=== PATIENT | female | born 1945 ===

== ENCOUNTER 2021-12-27 15:30 | Inpatient (IN) | payer MEDICARE, MEDICAID ==
[~2021-12-27] VITALS: Ht 160 cm; Wt 99.7 kg
[2021-12-27 16:11] VITALS: BP 116/54; PULSE 93; TEMP 98.5
[2021-12-27 16:45] LABS: BASO % 0.1 % (0.0-2.0); EOS % 0.2 % (0.0-4.0); GRAN % 85.2 % (42.2-75.2); HEMOGLOBIN 10.1 g/dl (12.5-16.0); LYMPH # 0.6 K/mm3 (1.2-3.4); LYMPH % 5.6 % (20.0-51.0); MEAN CELL VOLUME 85 fl (80.0-100.0); MEAN CORPUSCULAR HEMOGLOBIN 29 pg (27-31); MEAN CORPUSCULAR HGB CONC 34 g/dl (33.0-37.0); MEAN PLATELET VOLUME 9.4 fl (7.4-10.4); MONO # 0.8 K/mm3 (0.1-0.6); MONO % 7.6 % (1.7-9.3); PLATELET COUNT 221 K/mm3 (130-400); RED BLOOD COUNT 3.49 M/mm3 (4.10-5.30); REDCELL DISTRIBUTION WIDTH-CV 13.6 % (11.5-14.5)
[2021-12-27 16:50] LABS: HEMATOCRIT 29.8 % (37.0-47.0)
[2021-12-27 17:09] LABS: ALBUMIN 2.5 gm/dL (3.4-4.8); BILIRUBIN,TOTAL 0.8 mg/dL (0.2-1.2); CALCIUM 7.2 mg/dL (8.4-10.2); CREATININE, serum 1.25 mg/dL (0.57-1.11); TOTAL PROTEIN 5.6 gm/dL (6.2-8.1)
[2021-12-27 17:15] LABS: POTASSIUM 2.2 mmol/L (3.5-4.5)
[2021-12-27 20:20] VITALS: BP 132/67; PULSE 87; TEMP 97.9
[2021-12-27 21:00] LABS: MAGNESIUM 1.2 mg/dL (1.6-2.6); PHOSPHOROUS 3.3 mg/dL (2.3-4.7)
[2021-12-27 21:28] LABS: CALCIUM 7.1 mg/dL (8.4-10.2); CREATININE, serum 1.24 mg/dL (0.57-1.11)
[2021-12-27 21:32] LABS: POTASSIUM 2.6 mmol/L (3.5-4.5)
[2021-12-28] VITALS (7 sets, daily range): BP systolic 111–129; BP diastolic 41–51; PULSE 79–98; TEMP 97.6–98.7
[2021-12-28 04:29] LABS: BASO % 0.2 % (0.0-2.0); EOS % 0.1 % (0.0-4.0); GRAN # 9.9 K/mm3 (1.4-6.5); GRAN % 85.6 % (42.2-75.2); LYMPH # 0.9 K/mm3 (1.2-3.4); LYMPH % 7.4 % (20.0-51.0); MEAN CELL VOLUME 87 fl (80.0-100.0); MEAN CORPUSCULAR HGB CONC 34 g/dl (33.0-37.0); MEAN PLATELET VOLUME 9.3 fl (7.4-10.4); MONO # 0.7 K/mm3 (0.1-0.6); MONO % 6.2 % (1.7-9.3); PLATELET COUNT 211 K/mm3 (130-400); RED BLOOD COUNT 3.24 M/mm3 (4.10-5.30); REDCELL DISTRIBUTION WIDTH-CV 13.7 % (11.5-14.5)
[2021-12-28 04:37] LABS: HEMATOCRIT 28.2 % (37.0-47.0); HEMOGLOBIN 9.5 g/dl (12.5-16.0); MEAN CORPUSCULAR HEMOGLOBIN 29 pg (27-31)
[2021-12-28 04:59] LABS: CALCIUM 7.4 mg/dL (8.4-10.2); CREATININE, serum 1.14 mg/dL (0.57-1.11); MAGNESIUM 2.7 mg/dL (1.6-2.6)
[2021-12-28 05:06] LABS: POTASSIUM 2.9 mmol/L (3.5-4.5)
--- NOTE | 2021-12-28 10:34 | NUR ---
Initial visit; Patient thanked Online Banking Specialist for looking in on her. She is from [place] and very pleasant. Patient was receptive to prayer with Online Banking Specialist and having Online Banking Specialist keep her in her prayers. Online Banking Specialist will follow up.
--- NOTE | 2021-12-28 10:51 | NUR ---
PT RESTING IN BED. MORNING MEDICATIONS GIVEN. SHIFT ASSESSMENT COMPLETED. PT PARTIALLY ORIENTED TO SELF AND PLACE, NOT COMBATIVE AND FOLLOWS COMMANDS. SOFT RESTRAINTS REMOVED PER DR. MOODY ORDERS. PLAN TO D/C AGUILAR AND CENTRAL LINE PER DR. MOODY. PT SITTING UP EATING, NO SWALLOWING ISSUES NOTED. WILL CONTINUE TO MONITOR.
--- NOTE | 2021-12-28 14:49 | NUR ---
Director Sanitation Bureau met with patient and patient's daughter, Lisa (ph#[phone]) to discuss discharge planning. Patient lives alone in [place] and moved here from [place] in September. Patient sees Dr. Carina Aguilar at the [facility] and obtains medications from [facility]. Patient uses a rollator for ambulation and also has a transport chair, stool riser, and tub transfer bench at home. Patient reports she is normally independent with ADLS, however Lisa states patient needs assistance but will not admit it. SW inquired about Advance Directives and patient advised she has the forms at home, she just needs to complete them. SW reviewed OT recommendation for post acute rehab and patient declined. SW discussed Home Health services and patient was reluctant, however Lisa stated she needed HH and wanted list of agencies. SW provided Medicare.gov list of HH agencies that serve . Discharge Plan: Home with HH
[2021-12-28] MEDS ORDERED: PHARMASSURE ZIN50 MG PO (17:51)
[2021-12-28] MEDS ORDERED: VITAMIN D31000 I1 PO (17:52)
[2021-12-28] MEDS ORDERED: MAGNESIUM ELEM300 MG PO (17:52)
[2021-12-28] MEDS ORDERED: VITAMINC1000TA PO (17:52)
[2021-12-28] MEDS ORDERED: DESYREL 50MG50 MG PO (17:53)
[2021-12-28] MEDS ORDERED: TENORMIN100 MG PO (17:53)
[2021-12-28] MEDS ORDERED: PRAVACHOL 40MG40 MG PO (17:53)
[2021-12-28] MEDS ORDERED: PROTONIX 40MG T40 MG PO (17:54)
[2021-12-28] MEDS ORDERED: FERROUS SU325 MG/TAB PO (17:55)
[2021-12-28] MEDS ORDERED: GLUCOTROL10 MG PO (17:58)
[2021-12-28] MEDS ORDERED: LASIX 40MG TABL40 MG PO (17:58)
[2021-12-28] MEDS ORDERED: KEPPRA750 MG PO (17:58)
[2021-12-28] MEDS ORDERED: ALDACTONE 25MG25 M1 PO (17:59)
[2021-12-28] MEDS ORDERED: VICTOZA6 MG/ML SQ (17:59)
[2021-12-28] MEDS ORDERED: LEVEMIR100 U/ML SQ (17:59)
--- NOTE | 2021-12-28 19:57 | NUR ---
AGUILAR CATHETER REMOVED AT 1700, PT HAS GOOD URINE OUTPUT SINCE REMOVAL. LEFT FEMORAL CENTRAL LINE REMOVED AT 1920, PRESSURED HELD, FLAT TIME COMPLETED, DRESSING C/D/I. REPORT PASSED ALONG TO ANNETTE RAZA.
[2021-12-29 03:57] VITALS: BP 126/67; PULSE 92; TEMP 98.5
[2021-12-29 07:16] LABS: BASO % 0.2 % (0.0-2.0); CALCIUM 8.2 mg/dL (8.4-10.2); CREATININE, serum 0.92 mg/dL (0.57-1.11); EOS # 0.1 K/mm3 (0.0-0.7); EOS % 0.4 % (0.0-4.0); GRAN # 11.1 K/mm3 (1.4-6.5); GRAN % 88.7 % (42.2-75.2); LYMPH # 0.6 K/mm3 (1.2-3.4); LYMPH % 5.1 % (20.0-51.0); MEAN CELL VOLUME 89 fl (80.0-100.0); MEAN CORPUSCULAR HGB CONC 32 g/dl (33.0-37.0); MEAN PLATELET VOLUME 9.6 fl (7.4-10.4); MONO # 0.6 K/mm3 (0.1-0.6); MONO % 4.7 % (1.7-9.3); PLATELET COUNT 201 K/mm3 (130-400); POTASSIUM 3.9 mmol/L (3.5-4.5); RED BLOOD COUNT 3.32 M/mm3 (4.10-5.30); REDCELL DISTRIBUTION WIDTH-CV 13.5 % (11.5-14.5)
[2021-12-29 07:18] LABS: HEMATOCRIT 29.5 % (37.0-47.0); HEMOGLOBIN 9.5 g/dl (12.5-16.0); MEAN CORPUSCULAR HEMOGLOBIN 29 pg (27-31)
[2021-12-29 07:20] VITALS: BP 126/54; PULSE 88; TEMP 97.9
--- NOTE | 2021-12-29 10:09 | NUR ---
PT IN BED AND TALKATIVE. SHIFT ASSESMENT PERFORMED, VSS. REDNESS NOTED TO SACRAL AREA AND BUTTOCKS, AND SKIN TEAR NOTED IN SKIN FOLDS OF ABDOMEN EXTERNAL CATHETER IN PLACE AND OPERATIONAL. MORNING MEDICATIONS ADMINISTERED. CALL LIGHT WITHIN REACH.
--- NOTE | 2021-12-29 10:09 | NUR ---
Follow-up visit; Patient thanked Coning Machine Operator for looking in on her again today and asked that Coning Machine Operator pray again. Coning Machine Operator offered comfort and prayer and asked that patient also keep Coning Machine Operator in her prayers. Coning Machine Operator will continue to follow-up as patient clearly loves prayer.
[2021-12-29 11:27] VITALS: BP 132/59; PULSE 77; TEMP 98.8
[2021-12-29 16:14] VITALS: BP 121/51; PULSE 77; TEMP 98.8
--- NOTE | 2021-12-29 18:25 | NUR ---
PT RESTED IN BED MOST OF THE DAY, BUT WAS ABLE TO GET UP TO THE CHAIR FOR A FEW HOURS IN THE AFTERNOON. PT WAS A&O X4 ALL DAY, AND IN GOOD SPIRITS. PT CURRENTLY IN BED WATCHING TV, CALL LIGHT WITHIN REACH, BED IN LOWEST LOCKED POSITION.
[2021-12-29 20:04] VITALS: BP 114/49; PULSE 80; TEMP 99.2
[2021-12-30 00:15] VITALS: BP 112/52; PULSE 78; TEMP 98.8
[2021-12-30 04:11] VITALS: BP 130/53; PULSE 77; TEMP 98.6
[2021-12-30 06:32] LABS: BASO % 0.2 % (0.0-2.0); EOS # 0.1 K/mm3 (0.0-0.7); EOS % 1.1 % (0.0-4.0); GRAN # 9.8 K/mm3 (1.4-6.5); GRAN % 84.5 % (42.2-75.2); LYMPH % 8.2 % (20.0-51.0); MEAN CELL VOLUME 90 fl (80.0-100.0); MEAN CORPUSCULAR HGB CONC 32 g/dl (33.0-37.0); MEAN PLATELET VOLUME 9.3 fl (7.4-10.4); MONO # 0.6 K/mm3 (0.1-0.6); PLATELET COUNT 213 K/mm3 (130-400); RED BLOOD COUNT 3.31 M/mm3 (4.10-5.30); REDCELL DISTRIBUTION WIDTH-CV 13.8 % (11.5-14.5)
[2021-12-30 06:39] LABS: HEMATOCRIT 29.8 % (37.0-47.0); HEMOGLOBIN 9.5 g/dl (12.5-16.0); MEAN CORPUSCULAR HEMOGLOBIN 29 pg (27-31)
[2021-12-30 06:52] LABS: CALCIUM 8.5 mg/dL (8.4-10.2); CREATININE, serum 0.87 mg/dL (0.57-1.11); MAGNESIUM 1.8 mg/dL (1.6-2.6); POTASSIUM 3.5 mmol/L (3.5-4.5)
[2021-12-30 07:08] VITALS: BP 119/53; PULSE 75; TEMP 98.7
[2021-12-30] MEDS ORDERED: OMNICEF 300MG300 MG PO (09:47)
--- NOTE | 2021-12-30 10:25 | NUR ---
PT RESTING IN BED. MORNING MEDICATIONS. SHIFT ASSESSMENT COMPLETED. PT DENIES ANY PAIN, DOES STATE SHE FEELS DROWSY AND GOT LITTLE SLEEP LAST NIGHT. IVF INFUSING. CALL LIGHT IN REACH. WILL CONTINUE TO MONITOR.
[2021-12-30 11:47] VITALS: BP 134/55; PULSE 65; TEMP 98.5
--- NOTE | 2021-12-30 12:30 | NUR ---
Patient is ready for discharge today. Market Research Specialist met with patient to review Medicare.gov list of Home Health options. Patient selected [facility]. SW contacted [facility] with [facility] and faxed referral with discharge orders. SW contacted patient's daughter, Lisa to provide update and she is in agreement with discharge plan. Discharge Plan: Home with [facility]
--- NOTE | 2021-12-30 13:06 | NUR ---
IV D/C. TELE D/C. DISCHARGE INSTRUCTIONS GIVEN, DAUGHTER AT BEDSIDE, ALL QUESTIONS ANSWERED. PT ESCORTED DOWN TO VEHICLE WITH STAFF. WILL D/C FROM SYSTEM.
--- NOTE | 2021-12-31 15:29 | NUR ---
Bessy with [facility] home health calls and advises that they will accept patient and can admit her next week. Bessy will make contact with patient and also with her daughter, Bessy.
== END 2021-12-30 13:08 | disposition home health service (06) | DRG 871 ==
LOC: MEDICAL 15:30
PROVIDERS: Hospitalist; Nurse Practitioner Family; ADMIT Internal Medicine
DX: A41.9 Sepsis, unspecified organism (principal); G93.41 Metabolic encephalopathy; N39.0 Urinary tract infection, site not specified; E87.1 Hypo-osmolality and hyponatremia; N17.9 Acute kidney failure, unspecified; Z66 Do not resuscitate; R65.20 Severe sepsis without septic shock; K21.9 Gastro-esophageal reflux disease without esophagitis; E87.6 Hypokalemia; E83.42 Hypomagnesemia; I12.9 Hypertensive chronic kidney disease with stage 1 through stage 4 chronic kidney disease, or unspecified chronic kidney disease; E11.22 Type 2 diabetes mellitus with diabetic chronic kidney disease; N18.30 Chronic kidney disease, stage 3 unspecified; B96.20 Unspecified Escherichia coli [E. coli] as the cause of diseases classified elsewhere; B96.89 Other specified bacterial agents as the cause of diseases classified elsewhere; Z88.0 Allergy status to penicillin; Z87.891 Personal history of nicotine dependence; Z88.8 Allergy status to other drugs, medicaments and biological substances
CPT/HCPCS: J0696; J1644; J1815; J3475; J3480; J7030